=== PATIENT | female | born 1985 | race Caucasian/White ===

== ENCOUNTER 2023-08-09 20:44 | Emergency (ER) | payer BC ==
[~2023-08-09] VITALS: Ht 167.6 cm; Wt 72.1 kg
[2023-08-09 20:56] VITALS: BP 106/66; PULSE 108; RESP 18; TEMP 99.6; O2SAT 98
[2023-08-09 21:25] LABS: FLU A ANTIGEN negative (NEGATIVE); FLU B ANTIGEN negative (NEGATIVE)
[2023-08-09 21:58] VITALS: O2SAT 98
[2023-08-09] MEDS ORDERED: LORA1T1237 PO (22:29)
[2023-08-09] MEDS ORDERED: GUAI5LIQ5 PO (22:29)
[2023-08-09] MEDS ORDERED: IBUP-2213 PO (22:29)
== END 2023-08-09 22:35 | disposition home or self-care (01) ==
LOC: MED 20:44
DX: J06.9 Acute upper respiratory infection, unspecified (principal); Z20.822 Contact with and (suspected) exposure to COVID-19; J01.90 Acute sinusitis, unspecified; Z79.899 Other long term (current) drug therapy
CPT/HCPCS: 99283